=== PATIENT | female | born 1995 | race Two or more races ===

== ENCOUNTER 2023-06-03 19:38 | Emergency (ER) | payer OTHER ==
[~2023-06-03] VITALS: Ht 170.2 cm; Wt 81.2 kg
[2023-06-03] MEDS ORDERED: SYNTHROID50 MCG PO (20:00)
[2023-06-03 20:53] LABS: HEMATOCRIT 39.6 % (36.0-45.00); MEAN CELL VOLUME 91.6 fL (80.00-100.00); MEAN CORPUSCULAR HEMOGLOBIN 29.9 pg (27.00-32.0); MEAN CORPUSCULAR HGB CONC 32.7 g/dl (32.0-36.0); PLATELET COUNT 272 K/uL (150-450); RED BLOOD COUNT 4.33 M/uL (4.00-6.00); RED CELL DISTRIBUTION WIDTH 13.5 % (11.5-14.5)
== END 2023-06-03 22:38 | disposition home or self-care (01) ==
LOC: ER 19:38
PROVIDERS: General Practice
DX: J06.9 Acute upper respiratory infection, unspecified (principal); Z20.822 Contact with and (suspected) exposure to COVID-19

== ENCOUNTER 2023-11-10 22:45 | Emergency (ER) | payer OTHER ==
[~2023-11-10] VITALS: Ht 170.2 cm; Wt 79.8 kg
[~2023-11-10 22:45] MED LIST: SYNTHROID50 MCG PO
[2023-11-11] MEDS ORDERED: KETOROLAC TROMETHAMINE 10 MG TABLET PO STA (00:22)
[2023-11-11] MEDS ORDERED: MAG HYDROX/ALUMINUM HYD/SIMETH 30 ML BLIST.PACK PO STA (00:22)
[2023-11-11] MEDS ORDERED: LIDOCAINE HCL 20 MG/ML BLIST.PACK MM STA (00:23)
[2023-11-11 00:48] LABS: HEMATOCRIT 40.3 % (36.0-45.00); HEMOGLOBIN 13.7 g/dL (12.0-15.00); MEAN CELL VOLUME 91.4 fL (80.00-100.00); MEAN CORPUSCULAR HEMOGLOBIN 30.9 pg (27.00-32.0); MEAN CORPUSCULAR HGB CONC 33.8 g/dl (32.0-36.0); PLATELET COUNT 294 K/uL (150-450); RED BLOOD COUNT 4.41 M/uL (4.00-6.00); RED CELL DISTRIBUTION WIDTH 13.8 % (11.5-14.5)
[2023-11-11] MEDS ORDERED: ORASEP SPRAY30 ML MM (02:32)
[2023-11-11] MEDS ORDERED: ZITHROMAX500 MG PO (02:32)
[2023-11-11] MEDS ORDERED: DOLOGESIC-DF 51 EACH PO (02:33)
== END 2023-11-11 02:39 | disposition home or self-care (01) ==
LOC: ER 22:45
PROVIDERS: General Practice
DX: J02.9 Acute pharyngitis, unspecified (principal); Z20.822 Contact with and (suspected) exposure to COVID-19